=== PATIENT | male | born 1945 | race Caucasian/White ===

== ENCOUNTER → 2021-02-02 | Outpatient (CLI) | payer MEDICARE, OTHER ==
[~2021-02-02] MED LIST: EPA FISH OIL1000 MG PO; FENOFIBRATE160 MG PO; HCTZ 25MG25 MG PO; MULTI VITAMINS1 TAB PO; SOME BP MED; SOME CHOLESTEROL MED; [UNRECOGNIZED DRUG - OTHER]; [UNRECOGNIZED DRUG - REMARK]
== END ==
LOC: COL.RAD 13:36
DX: Z12.2 Encounter for screening for malignant neoplasm of respiratory organs (principal); F17.200 Nicotine dependence, unspecified, uncomplicated

== ENCOUNTER 2021-06-09 10:30 | Outpatient (RCR) | payer BC, MEDICARE, OTHER | END 2021-06-13 | disposition home or self-care (01) | LOC: WSST | DX: R41.841 Cognitive communication deficit (principal); R41.3 Other amnesia; R47.01 Aphasia; R48.2 Apraxia; G31.85 Corticobasal degeneration ==

== ENCOUNTER 2021-06-30 10:30 | Outpatient (RCR) | payer MEDICARE, OTHER | END 2021-07-11 | disposition home or self-care (01) | LOC: MKS.ESL.OT | DX: G31.85 Corticobasal degeneration (principal); R48.2 Apraxia ==

== ENCOUNTER → 2021-08-11 | Outpatient (RCR) | payer MEDICARE, OTHER ==
[~2021-08-11] MED LIST changes: +CEPHALEXIN500 M1 PO
== END | disposition home or self-care (01) ==
LOC: MKS.ESL.OT → WSST 07-20 12:45 → MKS.ESL.OT 07-22 13:45
DX: G31.85 Corticobasal degeneration (principal); R27.8 Other lack of coordination; R41.841 Cognitive communication deficit; R41.3 Other amnesia; R48.2 Apraxia

== ENCOUNTER 2021-09-08 13:30 | Outpatient (RCR) | payer MEDICARE, OTHER ==
[~2021-09-08 13:30] MED LIST changes: -CEPHALEXIN500 M1 PO
== END 2021-09-10 | disposition home or self-care (01) ==
LOC: WSST
DX: R48.2 Apraxia (principal); R41.841 Cognitive communication deficit; R41.3 Other amnesia; R47.01 Aphasia; G31.85 Corticobasal degeneration

== ENCOUNTER 2021-10-09 11:45 | Emergency (ER) | payer MEDICARE, OTHER ==
[~2021-10-09] VITALS: Ht 182.9 cm; Wt 80.9 kg
[2021-10-09 11:54] VITALS: TEMP 97.3
[2021-10-09] MEDS ORDERED: CEPHALEXIN500 M1 PO (12:03)
[2021-10-09 12:19] VITALS: BP 117/68; PULSE 54
== END 2021-10-09 12:27 | disposition home or self-care (01) ==
LOC: COL.ER 11:45
DX: T81.89XA Other complications of procedures, not elsewhere classified, initial encounter (principal)

== ENCOUNTER 2022-01-09 13:45 | Outpatient (RCR) | payer MEDICARE, OTHER ==
[~2022-01-09 13:45] MED LIST changes: +CEPHALEXIN500 M1 PO
== END 2022-01-11 | disposition home or self-care (01) ==
LOC: WSST
DX: R47.01 Aphasia (principal); R41.3 Other amnesia; R41.841 Cognitive communication deficit

== ENCOUNTER 2022-06-07 13:00 | Outpatient (RCR) | payer MEDICARE, OTHER | END 2022-06-13 | disposition home or self-care (01) | LOC: WSST | DX: G31.85 Corticobasal degeneration (principal) ==

== ENCOUNTER 2022-06-21 13:00 | Outpatient (RCR) | payer MEDICARE, OTHER | END 2022-07-11 | disposition home or self-care (01) | LOC: WSST | DX: R41.3 Other amnesia (principal); R41.841 Cognitive communication deficit ==

== ENCOUNTER 2022-08-09 13:00 | Outpatient (RCR) | payer MEDICARE, OTHER | END 2022-08-11 | disposition home or self-care (01) | LOC: WSST | DX: G31.85 Corticobasal degeneration (principal); R48.2 Apraxia ==

== ENCOUNTER → 2023-07-12 | Outpatient (RCR) | payer MEDICARE, OTHER | END | disposition home or self-care (01) | LOC: MKS.ESL.OT → WSST 07-05 09:00 → MKS.ESL.OT 09:30 | DX: R41.841 Cognitive communication deficit (principal); R41.3 Other amnesia; R48.2 Apraxia; G31.85 Corticobasal degeneration; G31.01 Pick's disease; F02.80 Dementia in other diseases classified elsewhere, unspecified severity, without behavioral disturbance, psychotic disturbance, mood disturbance, and anxiety ==